=== PATIENT | male | born 2000 | race Caucasian/White ===

== ENCOUNTER 2023-05-21 22:09 | Emergency (ER) | payer MEDICARE, SELFPAY ==
[2023-05-21] VITALS (11 sets, daily range): BP systolic 127–149; BP diastolic 65–87; BMI 17.9
--- NOTE | 2023-05-21 22:41 | ED.GENMED ---
History of Present Illness
<Dustin Rosales PA-C - Last Filed: 05/21/23 23:24>
General
Chief Complaint: Musculo-Skeletal Complaint
Source: patient
Time Seen by Provider: 05/21/23 22:28
Travel History
Have you had any contact with someone who has COVID-19?: No
Do you have any symptoms of coronavirus? Fever > 100 degrees, chills, cough, shortness of breath, sore throat, loss of taste or smell, muscle aches, or headache?: No
History of Present Illness
History of Present Illness:
22-year-old male presenting to the emergency department for evaluation after he suspected he dislocated his right shoulder when he was reaching to scratch his back when he felt his arm dislocate. Patient reports that this is the third time that
this has happened. He is followed with [facility] orthopedics in the past. He denies any focal weakness or numbness. No other injuries were sustained.
Past History
<Dustin Rosales PA-C - Last Filed: 05/21/23 23:24>
Past History
ED Past Medical History: Seizures and Other (Autism)
ED Past Surgical History: None
Social History
Tobacco: Non-smoker
Alcohol: None
Drug: None
Personal: Single
Living: with family
Review of Systems
<Dustin Rosales PA-C - Last Filed: 05/21/23 23:24>
Review of Systems
All Other Systems: ROS reviewed and negative except as documented in HPI and ROS
Phy Exam
<Dustin Rosales PA-C - Last Filed: 05/21/23 23:24>
Physical Exam
Physical Exam:
GENERAL: Alert , appears in mild discomfort
EYE: conjunctiva clear
Head: Normocephalic atraumatic
NECK: Supple,
ENT: mmm.
LUNGS: no acute respiratory distress
NEUROLOGICAL: Alert and oriented
SKIN: Warm and dry, skin intact.
MUSCULOSKELETAL: Right upper extremity: Deformity at the right shoulder noted, unable to assess range of motion secondary to pain. Easily palpable radial pulse. Cap refill less than 2 seconds. Sensation grossly intact to light touch throughout
the entirety of the extremity.
PSYCH: Normal and appropriate interaction.
Scores
<Dustin Rosales PA-C - Last Filed: 05/21/23 23:24>
Heart Failure Risk
Heart Failure Risk Score: Not Applicable
Heart Score for Chest Pain Patients
STEMI patient?: Not applicable
Withdrawal Assessment of Alcohol
Withdrawal Assessment Completed?: Not applicable
Course
<Dustin Rosales PA-C - Last Filed: 05/21/23 23:24>
Orders/Labs/Results
Orders:
Orders
05/21/23 22:15
Shoulder, Right 2 Views [CR Shoulder - Right Min 2 View] Urgent
Comment:
Reason For Exam: pain
05/21/23 22:54
Propofol [Diprivan] 20 ml .ROUTE .STK-MED
05/21/23 23:11
CR Shoulder - Right Min 2 View Urgent
Comment:
Reason For Exam: reduction
Vital Signs
Initial and Last Documented VS:
Initial Vital Signs
Pulse Resp BP Pulse Ox
89 18 127/78 96
05/21/23 22:10 05/21/23 22:10 05/21/23 22:10 05/21/23 22:10
Last Documented Vital Signs
Temp Pulse Resp BP Pulse Ox
97.3 F 60 18 136/83 100
05/21/23 22:59 05/21/23 23:18 05/21/23 23:18 05/21/23 23:18 05/21/23 23:18
<Lupillo Chisholm DO - Last Filed: 05/21/23 23:49>
Orders/Labs/Results
Orders:
Orders
05/21/23 22:15
Shoulder, Right 2 Views [CR Shoulder - Right Min 2 View] Urgent
Comment:
Reason For Exam: pain
05/21/23 22:54
Propofol [Diprivan] 20 ml .ROUTE .STK-MED
05/21/23 23:11
CR Shoulder - Right Min 2 View Urgent
Comment:
Reason For Exam: reduction
Vital Signs
Initial and Last Documented VS:
Initial Vital Signs
Pulse Resp BP Pulse Ox
89 18 127/78 96
05/21/23 22:10 05/21/23 22:10 05/21/23 22:10 05/21/23 22:10
Last Documented Vital Signs
Temp Pulse Resp BP Pulse Ox
97.3 F 60 18 136/83 100
05/21/23 22:59 05/21/23 23:18 05/21/23 23:18 05/21/23 23:18 05/21/23 23:18
Procedures
<Dustin Rosales PA-C - Last Filed: 05/21/23 23:24>
Moderate Sedation
ASA Risk Score: Class I
Chart and allergies reviewed: Yes
Consent for anesthesia obtained: Yes
Time out completed (validating right patient & procedure): Yes
History of difficult intubation: No
Airway free of obstruction: Yes
Patient has a gag reflex: Yes
Patient is able to open mouth: Yes
Patient has no dentures: Yes
Patient has no loose teeth: Yes
Medication administered by Provider during Moderate Sedation: IV Propofol (mg)
Total dose administered: 40
Time drug administered: 23:03
Start Time: 23:04
Stop Time: 23:20
Joint/Fracture Reduction
Right Shoulder:
Indication for procedure:: Right shoulder dislocation
Procedure completed by: Kathrine/Bobby
Consent form signed: Yes
Joint reduced: with anesthesia sedation
Anesthesia/sedation: Moderate sedation
Injury was: closed
Further treatement: needs further treatment
Post reduction exam: stable
Capillary Refill: normal
Normal distal neurovascular exam?: Yes
<Dustin Rosales PA-C - Last Filed: 05/21/23 23:24>
MDM/Problems Addressed
Differential Diagnosis Includes:
Dislocation, subluxation, no concern for fracture given no trauma
MDM/Problems Addressed:
22-year-old male present emergency [place] for evaluation of right shoulder dislocation suspected following attempting to scratch his back earlier this evening. X-ray was ordered from triage and confirms suspicion for dislocation. See above for
procedure note. Patient will follow-up with [facility] orthopedics for follow-up. Placed in a shoulder immobilizer. Otherwise stable for discharge home.
<Dustin Rosales PA-C - Last Filed: 05/21/23 23:24>
*Radiology
Radiology exam reviewed: preliminary read by ED provider (Right shoulder dislocation)
*Pulse Oximetry
Patient hypoxic: no
<Lupillo Chisholm DO - Last Filed: 05/21/23 23:49>
*Critical Care Note
Total Time (30-74mins, 75-104mins- exclusive of procedures): Not Applicable
<Dustin Rosales PA-C - Last Filed: 05/21/23 23:24>
Patient Management
Escalation/DeEscalation of care consider admission/obs:
Reduction film shows successful reduction without any evidence for fracture. Patient will stay in shoulder immobilizer. Stable for discharge home and aware of return precautions.
ED Attending Note
<Dustin Rosales PA-C - Last Filed: 05/21/23 23:24>
-
Portions of this chart may have been created with voice recognition software.� Occasional wrong word or��sound alike� substitutions may have occurred due to the inherent limitations of voice recognition software.
<Lupillo Chisholm DO - Last Filed: 05/21/23 23:49>
ED Attending Note
Patient seen and examined by attending physician: Yes
I performed the substantive portion of visit, reviewed & personally made and approve the management plan that is documented in note by myself or WHIT.: Yes
ED Attending Note:
Seen with PA examined independently recurrent shoulder dislocation
X-ray noted attempt at manual reduction without sedation unsuccessful, easily reduced with propofol
Discharge Plan
Departure
Patient Disposition: Home (Routine Discharge)
Date of Disposition: 05/21/23
Time of Disposition: 23:21
Patient with high blood pressure during this ER visit?: Yes
Discharge Problem:
Dislocation of shoulder, right, closed
Instructions: Shoulder Dislocation (DC)
Prescriptions:
No Action
levetiracetam 500 MG tablet
500 mg PO BID Qty: 60 0RF
ibuprofen 600 mg tablet
600 mg PO TIDPRN PRN (Reason: pain, take with food) Qty: 20 0RF
Referrals:
Deon Dumas MD [Active] - (Ortho - Call in the morning for an appointment)
Interventions
Interventions:
*Risk Screen - Suicide Last Done: 05/21/23 22:10
*General Assessment Last Done: 05/21/23 22:10
*Neglect/Abuse Screening Last Done: 05/21/23 22:10
ED- Fall Risk Assessment Last Done: 05/21/23 22:10
*ED COVID-19 Vaccine History Last Done: 05/21/23 22:10
[2023-05-22] VITALS: BP 131/73
== END 2023-05-22 00:51 | disposition home or self-care (01) ==
LOC: EMR 22:09
PROVIDERS: EMERGENCY PHYSICIAN Emergency Medicine; FAMILY PHYSICIAN Family Medicine
DX: S43.004A Unspecified dislocation of right shoulder joint, initial encounter (principal); W19.XXXA Unspecified fall, initial encounter; F84.0 Autistic disorder
CPT/HCPCS: 99283; 23650; 73030

== ENCOUNTER 2024-03-27 20:34 | Emergency (ER) | payer MEDICARE, SELFPAY ==
[2024-03-27 20:45] VITALS: BP 137/101
[2024-03-27 20:55] LABS: % Basophils 0.4 % (0-2); % Eosinophils 0.5 % (0-6); % Immature Granulocytes 0.1 % (0-0.5); % Lymphocytes 20.4 % (20.5-51.1); % Monocytes 6.5 % (1.7-9.3); % Neutrophils 72.1 % (42.2-75.2); Absolute Lymphocytes 1.5 10^3/uL (1.2-3.4); Absolute Monocytes 0.5 10^3/uL (0.1-0.6); Absolute Neutrophils 5.3 10^3/uL (1.4-6.5); Hematocrit 44.9 % (39.0-52.0); Hemoglobin 15.3 g/dL (13.0-18.0); Mean Corp Hgb Conc. 34.1 g/dL (33.0-37.0); Mean Corpuscular Hgb 28.2 pg (27.0-31.0); Mean Corpuscular Volume 82.8 fL (80.0-94.0); Mean Platelet Volume 10.5 fL (7.4-10.4); Nucleated Red Blood Cells % 0 % (-); Platelet Count 255 10^3/uL (130-400); Red Blood Cell Count 5.42 10^6/uL (4.70-6.10); Red Cell Dist. Width 12.5 % (11.5-14.5); White Blood Cell Count 7.4 10^3/uL (4.8-10.8)
[2024-03-27 21:00] VITALS: BP 121/77
[2024-03-27 21:18] LABS: Blood Urea Nitrogen 8 mg/dl (9-20); Calcium 9.5 mg/dl (8.4-10.2); Carbon Dioxide 17 mmol/L (22-30); Chloride 102 mmol/L (98-107); Glucose 120 mg/dl (70-99); Potassium 3.6 mmol/L (3.5-5.1); Sodium 135 mmol/L (135-145); eGFR > 60.00
--- NOTE | 2024-03-27 21:20 | ED.GENMED ---
History of Present Illness
General
Chief Complaint: Seizure
Time Seen by Provider: 03/27/24 21:02
History of Present Illness
History of Present Illness:
23-year-old male with known seizure disorder presenting after a seizure. Patient had a seizure while at work, witnessed by staff. Patient was allegedly helped to the ground when seizure was detected. Patient arrives awake and alert, notes that he
takes Keppra 500 mg twice daily. He notes that occasionally he does miss doses, however has not missed any doses recently. His last seizure about 3 months ago. Denies any present headache, visual changes, abdominal pain, chest pain, difficulty
breathing. Denies any recent alcohol usage. Denies additional acute medical complaint
Past History
Past History
ED Past Medical History: Seizures and Other (Autism)
ED Past Surgical History: None
Social History
Tobacco: Non-smoker
Alcohol: None
Drug: None
Personal: Single
Living: with family
Phy Exam
Physical Exam
Physical Exam:
General: Well-appearing, no clinical signs of dehydration, nontoxic and in no acute distress
HEENT: protecting airway, pupils equal and reactive, extraocular movements intact
Neck: appears supple, no cervical tenderness
CV: Normal heart rate, regular rhythm
Resp: No accessory muscle use, no increased work of breathing, lungs clear to auscultation bilaterally
Abd: Soft and non-distended, no tenderness to palpation, normal bowel sounds
Extremities: No deformities, no swelling, no erythema
Neuro: alert, no focal neurologic deficit
: deferred
Rectal: deferred
Psych: Normal affect
Skin: Intact
Course
Orders/Labs/Results
Orders:
Orders
03/27/24 20:46
Basic Metabolic Panel Urgent
Complete Blood Count/With Diff Urgent
Keppra (Levetiracetam) [S] Urgent
03/27/24 21:19
Levetiracetam [Keppra] 1,000 mg PO NOW STA
Abnormal Lab Results
03/27/24
20:46
MPV 10.5 H fL
(7.4-10.4)
Lymphocytes % 20.4 L %
(20.5-51.1)
Carbon Dioxide 17 L mmol/L
(22-30)
BUN 8 L mg/dl
(9-20)
Glucose 120 H mg/dl
(70-99)
03/27/24 20:46
03/27/24 20:46
Vital Signs
Initial and Last Documented VS:
Initial Vital Signs
Pulse Ox
99
03/27/24 20:42
Last Documented Vital Signs
Pulse Resp BP Pulse Ox
83 9 119/76 99
03/27/24 22:30 03/27/24 22:30 03/27/24 22:00 03/27/24 22:30
MDM/Problems Addressed
MDM/Problems Addressed:
23-year-old male with known seizure disorder presenting to the emergency department for seizure at work. Vital signs normal.
On exam patient is well-appearing, no acute distress or discomfort. No signs of trauma. GCS of 15. No focal neurologic deficits. Suspect breakthrough seizure in a patient with known seizure disorder. Plan for screening laboratory analysis and
Keppra level. Additional dose of Keppra administered. No indication for CT brain imaging at this time. Will continue to closely monitor with likely plan for outpatient neurologic follow-up
*Critical Care Note
Total Time (30-74mins, 75-104mins- exclusive of procedures): Not Applicable
ED Attending Note
-
Portions of this chart may have been created with voice recognition software.� Occasional wrong word or��sound alike� substitutions may have occurred due to the inherent limitations of voice recognition software.
Discharge Plan
Departure
Patient with high blood pressure during this ER visit?: No
Condition: Good
Discharge Problem:
Breakthrough seizure
Prescriptions:
No Action
levetiracetam 500 MG tablet
500 mg PO BID Qty: 60 0RF
ibuprofen 600 mg tablet
600 mg PO TIDPRN PRN (Reason: pain, take with food) Qty: 20 0RF
Referrals:
NONE,* [Family Provider] -
Activity Restrictions/Additional Instructions:
You were seen in the emergency department for seizure
You were found to have normal blood work
Please follow-up closely with your primary care physician and your neurologist.
Return to the emergency department for any worsening of your symptoms, or any development of chest pain, difficulty breathing, abdominal pain with persistent vomiting and inability to tolerate food or liquid by mouth (concern for dehydration),
weakness, headache or confusion, fever greater than 100.4, or any additional symptoms that are concerning to you.
Thank you for choosing [facility].
Interventions
Interventions:
*Risk Screen - Suicide Last Done: 03/27/24 20:44
*General Assessment Last Done: 03/27/24 20:44
*Neglect/Abuse Screening Last Done: 03/27/24 20:44
ED- Fall Risk Assessment Last Done: 03/27/24 20:42
ED- Cardiac Assessment Last Done: 03/27/24 20:42
ED- Neurological Assessment Last Done: 03/27/24 20:42
ED- Pulmonary Assessment Last Done: 03/27/24 20:42
Discharge Date and Time
Print Language: SINHALA
[2024-03-27] MEDS: KEPPRA 1000 MG PO (21:23)
[2024-03-27 22:00] VITALS: BP 119/76
[2024-03-30 02:10] LABS: Keppra (Levetiracetam) 14 ug/mL (10-40)
== END 2024-03-27 23:04 | disposition home or self-care (01) ==
LOC: EMR 20:34
PROVIDERS: EMERGENCY PHYSICIAN Student in an Organized Health Care Education/Training Program
DX: G40.89 Other seizures (principal)
CPT/HCPCS: 99283; 80048; 80177; 85025

== ENCOUNTER 2024-09-12 15:30 | Emergency (ER) | payer SELFPAY ==
[2024-09-12 15:31] VITALS: BP 135/89
[2024-09-12 15:40] VITALS: BP 109/87
--- NOTE | 2024-09-12 15:52 | ED.GENMED ---
History of Present Illness
General
Chief Complaint: Seizure
Source: patient and family
Exam Limitations: none
Time Seen by Provider: 09/12/24 15:42
History of Present Illness
History of Present Illness:
See MDM
Past History
Past History
ED Past Medical History: Seizures and Other (Autism)
ED Past Surgical History: None
Social History
Tobacco: Non-smoker
Alcohol: None
Drug: None
Personal: Single
Living: with family
Phy Exam
Physical Exam
Physical Exam:
See MDM
Course
Orders/Labs/Results
Orders:
Orders
09/12/24 15:51
CT Head W/o Iv Contrast Urgent
Comment:
Reason For Exam: Seizure, nose and R ear injury
Levetiracetam Injectable [Keppra] 1,000 mg IV NOW STA
Lorazepam [Ativan] 1 mg IV NOW STA
09/12/24 16:10
Complete Blood Count/With Diff Urgent
Comprehensive Metabolic Panel Urgent
Abnormal Lab Results
09/12/24
16:10
MPV 11.9 H fL
(7.4-10.4)
Absolute Neuts (auto) 6.6 H 10^3/uL
(1.4-6.5)
Absolute Lymphs (auto) 0.6 L 10^3/uL
(1.2-3.4)
Neutrophils % 84.0 H %
(42.2-75.2)
Lymphocytes % 7.5 L %
(20.5-51.1)
Chloride 108 H mmol/L
(98-107)
Glucose 111 H mg/dl
(70-99)
09/12/24 16:10
09/12/24 16:10
Vital Signs
Initial and Last Documented VS:
Initial Vital Signs
Temp Pulse Resp BP Pulse Ox
98.5 F 95 16 135/89 97
09/12/24 15:31 09/12/24 15:31 09/12/24 15:31 09/12/24 15:31 09/12/24 15:31
Last Documented Vital Signs
Temp Pulse Resp BP Pulse Ox
98.5 F 64 18 109/87 98
09/12/24 15:31 09/12/24 17:00 09/12/24 17:00 09/12/24 15:40 09/12/24 17:00
MDM/Problems Addressed
Differential Diagnosis Includes:
HPI and MDM Narrative:
24-year-old male presenting with parents for evaluation of breakthrough seizure. Patient states he had a rigorous workout earlier today. He then went to [place] [facility] [place]. Patient woke up on the floor. He came home with a bloody face. Patient
found to have blood coming from his right nare, abrasion to the bridge of his nose and blood coming out of his right ear. Patient states he feels little foggy. He denies any change in his Keppra dosing. He states he is on 750 mg twice daily and
claims compliance. Given the breakthrough seizure, will load with Keppra and give dose of Ativan. Given the head injury, will obtain CT head. On exam, he is a small abrasion to the bridge of the nose and small cut on the inside of his right nare
but there is no septal hematoma or obvious deformity. Patient has dried blood in the right ear external canal. Small laceration noted just below porsche helix extending into canal
TM appears intact. No hearing loss noted.
Physical exam
General: Well appearing and non-toxic
HEENT: protecting airway. Small superficial laceration to right ear extending into external canal. It is already well-approximated. TM clear. Abrasion noted to bridge of nose. Small laceration noted to nare of right nose. Left-sided tongue
bite noted
Neck: appears supple
CV: No evidence of cyanosis
Resp: No accessory muscle use
Abd: Non-distended
Extremities: No deformities. Mild tenderness to anterior right shoulder without bony tenderness. Muscle strength and range of motion intact
Neuro: alert
Psych: Normal affect
Skin: Intact
Problems Addressed including Acute and Chronic Conditions affecting care:
1. Breakthrough seizure
Acuity: acute
Prognosis: stable
Details: Will load with Keppra and give dose of Ativan
2. Head injury
Acuity: acute
Prognosis: stable
Details: Lacerations are stable and do not require any sutures or Dermabond. Will obtain CT head
3. [ ]
Acuity: acute
Prognosis: stable
Details:
4. [ ]
Acuity: acute
Prognosis: stable
Details:
5. [ ]
Acuity:
Prognosis:
Details:
Updates
Differential Diagnosis (but not limited to): Breakthrough seizure, intracranial hemorrhage, nasal fracture
Testing considered: Neck x-ray but there is no tenderness
Drug therapy (if applicable): OTC meds, please see d/c instruction regarding Rx drugs
Amount and/or Complexity of Data Reviewed
Clinical info obtained from: Patient. Mother and father believe that he is compliant with medications
External data reviewed: N/A
Labs I independently reviewed (but not limited to): [ ]
Radiology: N/A
Pulse Ox: not hypoxic
EKG independently reviewed: N/A
Meat Cutting [employer]r: N/A
Critical Care: N/A
Risk of Complication:
Social Determinants of health: Good social support
Discussed with other providers: N/A
Escalation of Care includes Admit/Obs: After being observed in the Emergency Department, pt stable for discharge.
Occasional wrong word or 'sound a like' substitutions may have occurred due to the inherent limitations of voice recognition software. Read the chart carefully and recognize, using context, where substitutions have occurred.
*Critical Care Note
Total Time (30-74mins, 75-104mins- exclusive of procedures): Not Applicable
ED Attending Note
-
Portions of this chart may have been created with voice recognition software.� Occasional wrong word or��sound alike� substitutions may have occurred due to the inherent limitations of voice recognition software.
Discharge Plan
Departure
Patient Disposition: Home (Routine Discharge)
Date of Disposition: 09/12/24
Time of Disposition: 18:00
Patient with high blood pressure during this ER visit?: No
Discharge Problem:
Seizure
Instructions: Seizures, Adult (DC)
Prescriptions:
No Action
levetiracetam 500 MG tablet
500 mg PO BID Qty: 60 0RF
ibuprofen 600 mg tablet
600 mg PO TIDPRN PRN (Reason: pain, take with food) Qty: 20 0RF
Referrals:
Nicko Mayorga DO [Family Provider, Family Practice]
Activity Restrictions/Additional Instructions:
Please return for any worsening symptoms.
You may return at any time if you have further concerns.
Please follow up with your neurologist at the first available appointment, preferably this week.
Thank you for choosing [facility].
Interventions
Interventions:
ED- Cardiac Assessment Last Done: 09/12/24 15:50
ED- Neurological Assessment Last Done: 09/12/24 15:50
ED- Pulmonary Assessment Last Done: 09/12/24 15:50
Discharge Date and Time
Print Language: GIBRALTARIAN
[2024-09-12] MEDS: ATIVAN 1 MG IV (16:05)
[2024-09-12] MEDS: KEPPRA 1000 MG IV (16:06)
[2024-09-12 16:18] LABS: % Basophils 0.3 % (0-2); % Eosinophils 0.3 % (0-6); % Immature Granulocytes 0.3 % (0-0.5); % Lymphocytes 7.5 % (20.5-51.1); % Monocytes 7.6 % (1.7-9.3); Absolute Lymphocytes 0.6 10^3/uL (1.2-3.4); Absolute Monocytes 0.6 10^3/uL (0.1-0.6); Absolute Neutrophils 6.6 10^3/uL (1.4-6.5); Hematocrit 45.3 % (39.0-52.0); Hemoglobin 15.6 g/dL (13.0-18.0); Mean Corp Hgb Conc. 34.4 g/dL (33.0-37.0); Mean Corpuscular Hgb 28.5 pg (27.0-31.0); Mean Corpuscular Volume 82.7 fL (80.0-94.0); Mean Platelet Volume 11.9 fL (7.4-10.4); Nucleated Red Blood Cells % 0 % (-); Platelet Count 196 10^3/uL (130-400); Red Blood Cell Count 5.48 10^6/uL (4.70-6.10); Red Cell Dist. Width 12.8 % (11.5-14.5); White Blood Cell Count 7.9 10^3/uL (4.8-10.8)
[2024-09-12 16:31] LABS: ALT (SGPT) 18 U/L (0-50); AST (SGOT) 25 U/L (17-59); Alkaline Phosphatase 64 U/L (38-126); Blood Urea Nitrogen 12 mg/dl (9-20); Calcium 9.4 mg/dl (8.4-10.2); Carbon Dioxide 23 mmol/L (22-30); Chloride 108 mmol/L (98-107); Glucose 111 mg/dl (70-99); Potassium 3.6 mmol/L (3.5-5.1); Sodium 139 mmol/L (135-145); Total Protein 7.5 g/dl (6.3-8.2); eGFR > 60.00
[2024-09-12 18:03] VITALS: BP 157/83
== END 2024-09-12 18:25 | disposition home or self-care (01) ==
LOC: EMR 15:30
PROVIDERS: EMERGENCY PHYSICIAN Student in an Organized Health Care Education/Training Program; FAMILY PHYSICIAN Family Medicine
DX: R56.9 Unspecified convulsions (principal); F84.0 Autistic disorder
CPT/HCPCS: 99284; 96374; 96375; 70450; 80053; 85025

== ENCOUNTER 2024-10-18 15:29 | Emergency (ER) | payer MEDICARE, SELFPAY ==
[2024-10-18] VITALS (15 sets, daily range): BP systolic 111–138; BP diastolic 61–87; BMI 19.1
[2024-10-18 15:57] LABS: Hematocrit 45.8 % (39.0-52.0); Hemoglobin 15.9 g/dL (13.0-18.0); Mean Corp Hgb Conc. 34.7 g/dL (33.0-37.0); Mean Corpuscular Volume 81.8 fL (80.0-94.0); Nucleated Red Blood Cells % 0 % (-); Platelet Count 192 10^3/uL (130-400); Red Cell Dist. Width 13.5 % (11.5-14.5)
[2024-10-18 16:18] LABS: ALT (SGPT) 23 U/L (0-50); AST (SGOT) 23 U/L (17-59); Albumin 5.2 g/dl (3.5-5.0); Alkaline Phosphatase 57 U/L (38-126); Blood Urea Nitrogen 17 mg/dl (9-20); Calcium 9.6 mg/dl (8.4-10.2); Carbon Dioxide 25 mmol/L (22-30); Chloride 107 mmol/L (98-107); Glucose 139 mg/dl (70-99); Potassium 3.9 mmol/L (3.5-5.1); Sodium 140 mmol/L (135-145); Total Protein 7.9 g/dl (6.3-8.2); eGFR > 60.00
--- NOTE | 2024-10-18 18:32 | ED.GENMED ---
History of Present Illness
General
Chief Complaint: Seizure
Source: patient
Exam Limitations: none
Time Seen by Provider: 10/18/24 18:11
Nursing documentation reviewed up to this point in time: agreed with
History of Present Illness
History of Present Illness:
24-year-old male history of epilepsy since age 19 he is on Keppra 750 mg twice a day nondrinker non-smoker states he has not missed any doses his neurologist is Dr. Woodard had a seizure about a month ago, seen in the ER apparently discharged he has
had shoulder dislocations previously today went for a walk came home around a witnessed seizure by his friend the last a minute or so he has pain in his right shoulder held at his side does not believe he struck his head, no tongue bite unsure if he
urinated himself he does not drive
Past History
Past History
ED Past Medical History: Seizures and Other (Autism)
ED Past Surgical History: None
Social History
Tobacco: Non-smoker
Alcohol: None
Drug: None
Personal: Single
Living: with family
Review of Systems
Review of Systems
All Other Systems: Not applicable
Constitutional: Denies fever or fatigue
Respiratory: Reports no symptoms
Cardiac: Reports no symptoms
ABD/GI: Reports no symptoms
Musculoskeletal: Reports joint pain and muscle stiffness
Phy Exam
Physical Exam
Physical Exam:
Physical Exam
General: no apparent distress, not acutely ill
Neck: No tongue bite no posterior neck
Heart: s1/s2 regular rate and rhythm, no murmur. equal radial pulses.
Lungs: no acute respiratory distress.
Abdomen: Nontender
Neuro: alert and oriented. no focal neurological deficits
Skin: no rash
Psychiatric: well kept. interactive and cooperative
Extremities: Tender over the right glenoid right arm held in normal position does have pain with range of motion
Course
Orders/Labs/Results
Orders:
Orders
10/18/24 15:51
Complete Blood Count/With Diff Urgent
Comprehensive Metabolic Panel Urgent
Keppra (Levetiracetam) [S] Urgent
10/18/24 18:23
Ketorolac [Toradol] 30 mg IV NOW STA
Levetiracetam Injectable [Keppra] 1,500 mg IV NOW STA
Shoulder, Right 2 Views [CR Shoulder - Right Min 2 View] Urgent
Comment:
Reason For Exam: dislocated p seiziure
10/18/24 21:39
Propofol [Diprivan] 100 mg IV NOW STA
10/18/24 21:40
ASA Classification Routine
Splints/Slings/Crut- Treatment ONCE
10/18/24 22:09
0.9% Sodium Chloride 500 ml [Nss] 500 ml IV BOLUS
10/18/24 22:20
Shoulder, Right, Trauma [CR Shoulder, Trauma - Right] Stat
Comment:
Reason For Exam: post reduction
Abnormal Lab Results
10/18/24
15:51
MPV 11.2 H fL
(7.4-10.4)
Immature Gran % 0.6 H %
(0-0.5)
Lymphocytes % 18.6 L %
(20.5-51.1)
Glucose 139 H mg/dl
(70-99)
Albumin 5.2 H g/dl
(3.5-5.0)
10/18/24 15:51
10/18/24 15:51
Vital Signs
Initial and Last Documented VS:
Initial Vital Signs
Temp Pulse Resp BP Pulse Ox
98.3 F 108 22 111/78 96
10/18/24 15:31 10/18/24 15:31 10/18/24 15:31 10/18/24 15:31 10/18/24 15:31
Last Documented Vital Signs
Temp Pulse Resp BP Pulse Ox
98.5 F 74 13 134/72 97
10/18/24 22:45 10/18/24 22:45 10/18/24 22:45 10/18/24 22:45 10/18/24 22:45
Procedures
Moderate Sedation
ASA Risk Score: Class II
Chart and allergies reviewed: Yes
Consent for anesthesia obtained: Yes
Time out completed (validating right patient & procedure): Yes
Moderate Sedation Start Time(when first medication is given): 10:15
History of difficult intubation: No
Airway free of obstruction: Yes
Patient has a gag reflex: Yes
Patient is able to open mouth: Yes
Patient has no dentures: Yes
Patient has no loose teeth: Yes
Medication administered by Provider during Moderate Sedation: IV Propofol (mg)
Total dose administered: 40
Time drug administered: 10:15
Moderate Sedation Procedure End Time: 10:25
Splint Check
Splint checked by provider?: Yes
Circulation/Movement/Sensation post splint application: brisk cap refill
Splinting/Sling Placement
Shoulder right:
Procedure completed by: tatiana
Pre-splint extermity exam: neurovascular intact
Splint checked by provider?: Yes
Type of sling: sling fitted
Joint/Fracture Reduction
Right Shoulder:
Indication for procedure:: Shoulder dislocation
Procedure completed by: Tatiana
Consent form signed: Yes
Joint reduced: with anesthesia sedation
Anesthesia/sedation: Injection to joint space and Moderate sedation
Injury was: closed
Further treatement: no treatment needed
Post reduction exam: stable
Capillary Refill: normal
Normal distal neurovascular exam?: Yes
Peripheral Pulses: radial (right): 4+
MDM/Problems Addressed
Differential Diagnosis Includes:
Seizure and epilepsy patient compliant with his meds no clinical signs of DIRECTOR BUSINESS MANAGEMENT infection doubt significant closed head injury shoulder pain history of dislocation could be a posterior dislocation
MDM/Problems Addressed:
Seizure, shoulder pain
Chronic conditions affecting care: Neurological disorder
Acute Exacerbation and/or Progression of Chronic Illness: Neurological disorder
*Pulse Oximetry
SaO2: 96
Oxygen Mode of Delivery: Room air
Patient hypoxic: no
*Clipper Machine Operator Interpretation
Rate: normal
Interpretation: normal
Heart Rate: 78
Rhythm: sinus
*Critical Care Note
Total Time (30-74mins, 75-104mins- exclusive of procedures): Not Applicable
Update Note
Update Note:
Will increase his Keppra dose here to give a gram and a half bolus, check shoulder film
9 PM x-ray looks like shoulder dislocation reviewed the radiology confirmed
Reviewed with patient attempt at manual reduction with intra-articular shot unsuccessful we will proceed with traction countertraction with the procedural sedation
Shoulder looks like it is adequately reduced, month ago he was here with a similar presentation with a breakthrough seizure no change in his dose of his meds at that time states he has been compliant will increase him to 1000 Keppra twice a day
reviewed with his brother
ED Attending Note
-
Portions of this chart may have been created with voice recognition software.� Occasional wrong word or��sound alike� substitutions may have occurred due to the inherent limitations of voice recognition software.
Discharge Plan
Departure
Patient Disposition: Home (Routine Discharge)
Date of Disposition: 10/18/24
Time of Disposition: 22:48
Patient with high blood pressure during this ER visit?: No
Condition: Good
Discharge Problem:
Seizure, Anterior shoulder dislocation
Instructions: Seizures, Adult (DC), Shoulder Dislocation (DC)
Prescriptions:
New
levetiracetam [Keppra] 1,000 mg tablet
1,000 mg PO BID Qty: 60 4RF
No Action
levetiracetam 500 MG tablet
500 mg PO BID Qty: 60 0RF
ibuprofen 600 mg tablet
600 mg PO TIDPRN PRN (Reason: pain, take with food) Qty: 20 0RF
Referrals:
Jaja Woodard, [Non-Admitting Privileges, Neurology] - Next open appointment
UNKNOWN - PT DOES,NOT KNOW [Family Provider]
Michael Miles MD [Active, Orthopedics] - Follow up in 10 days
Activity Restrictions/Additional Instructions:
Ibuprofen as needed for pain
Increase your Keppra dose to 1000 mg twice a day starting tomorrow
Follow-up with Dr. Woodard and Dr. Miles from orthopedics
Interventions
Interventions:
*Risk Screen - Suicide Last Done: 10/18/24 15:31
*General Assessment Last Done: 10/18/24 15:31
*Neglect/Abuse Screening Last Done: 10/18/24 15:31
*ED- Fall Risk Assessment Last Done: 10/18/24 18:55
*ED COVID-19 Vaccine History Last Done: 10/18/24 18:55
ED- Cardiac Assessment Last Done: 10/18/24 18:55
ED- Neurological Assessment Last Done: 10/18/24 18:55
ED- Pulmonary Assessment Last Done: 10/18/24 18:55
Discharge Date and Time
Print Language: [id number]
[2024-10-18] MEDS: TORADOL 30 MG IV (19:21)
[2024-10-18] MEDS: KEPPRA 1500 MG IV (19:22)
[2024-10-18] MEDS: NSS 500 IV (22:09)
[2024-10-18] MEDS: DIPRIVAN 100 MG IV (22:15)
[2024-10-18] MEDS: KEPPRA 1000 MG PO (23:19)
== END 2024-10-18 23:30 | disposition home or self-care (01) ==
LOC: EMR 15:29
PROVIDERS: EMERGENCY PHYSICIAN Emergency Medicine
DX: S43.014A Anterior dislocation of right humerus, initial encounter (principal); X58.XXXA Exposure to other specified factors, initial encounter; G40.909 Epilepsy, unspecified, not intractable, without status epilepticus; F84.0 Autistic disorder
CPT/HCPCS: 99283; 23650; 99152; 96374; 96375; 73030; 80053; 80177; 85025